=== PATIENT | male | born 1950 | race Hispanic/Latino ===

== ENCOUNTER 2018-09-13 15:01 | Emergency (ER) | payer SELFPAY ==
[2018-09-13] MEDS ORDERED: MECLIZINE HCL 12.5 MG TAB ONE (15:47)
[2018-09-13 15:53] LABS: Absolute Lymphocytes (CBC) 1.8 K/uL (0.7-4.9); Absolute Monocytes 0.4 K/uL (0.1-1.3); Absolute Neutrophil 7.3 K/uL (1.8-8.0); Basophils % 0.3 % (0-1.3); Eosinophils % 0.2 % (0-4.4); Hematocrit 42.5 % (39.6-49.0); Lymphocytes % 18.5 % (15.3-44.8); MCH 30.3 pg (27.0-35.0); MCV 85.6 fL (80-100); MPV 8.9 fL (7.6-11.3); Monocytes % 4.5 % (3.3-12.3); RBC Red Blood Cell Count 4.97 M/uL (4.33-5.43)
[2018-09-13 15:55] LABS: Protime INR 0.97
[2018-09-13 16:07] LABS: ALT/SGPT 23 U/L (12-78); AST/SGOT 13 U/L (15-37); Albumin 3.6 g/dL (3.4-5.0); Alkaline Phosphatase 74 U/L (45-117); BUN Blood Urea Nitrogen 13 mg/dL (7-18); Bicarbonate 22 mmol/L (21-32); Bilirubin Direct 0.1 mg/dL (0-0.2); Bilirubin Total 0.5 mg/dL (0.2-1.0); Glucose Level 205 mg/dL (74-106); Magnesium 1.9 mg/dL (1.8-2.4); NT PRO-BNP 397 pg/mL (<125); Potassium 3.7 mmol/L (3.5-5.1); Protein, Total 7.9 g/dL (6.4-8.2); Sodium Level 138 mmol/L (136-145); Troponin (Emerg Dept Use Only) < 0.02 ng/mL (0.0-0.045)
--- NOTE | 2018-09-13 16:27 | RAD REPORT ---
EXAM DESCRIPTION: CT - CTHCSPWOC - 09/13/2018 3:58 pm CLINICAL HISTORY: Fall, head and neck injury COMPARISON: None. TECHNIQUE: Axial 5 mm thick images of the head were obtained. Axial 2 mm thick images of the cervic al spine were obtained with sagittal and coronal reconstruction images generated and reviewed. All CT scans are performed using dose optimization technique as appropriate and may include automated exposure control or mA/KV adjustment according to patient size. FINDINGS: No intracranial hemorrhage is present. Patient has a baseline of mild atrophy and chronic ischemic change. There is diminished attenuation in the medial right cerebellum. There is localized e jennifer. This is most likely an acute or subacute cerebellum CVA. Malignant mass is a lesser considerati on. No acute or subacute infarction changes elsewhere. No acute cortical based infarction in the cere bral hemispheres. Ventricles are in proportion to the amount of volume loss. Mastoid air cells and pa ranasal sinuses are clear. No globe or orbit abnormality seen. Cervical body height and alignment are normal. No disk space narrowing. No fracture or acute bony abn ormality. No paraspinal mass or hematoma. Findings telephoned to the referring clinician 4:22 p.m. 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 The CVA radha ears to follow a vascular distribution. Malignant mass of the cerebellum is considered unlikely. Foll ow-up MR imaging can be performed as warranted. Underlying mild atrophy and chronic ischemic change. Cervical spine degenerative changes are present but no fracture or acute cervical spine finding noted .
--- NOTE | 2018-09-13 16:30 | RAD REPORT ---
EXAM DESCRIPTION: RAD - Chest Single View - 09/13/2018 4:22 pm CLINICAL HISTORY: Headache, weakness, dizziness COMPARISON: None. TECHNIQUE: AP portable chest image was obtained 1609 hours . FINDINGS: No peripheral mass, consolidation or failure. Lung markings are mildly prominent suspected to be baseline. Heart and vasculature are normal. No measurable pleural effusion and no pneumothorax . No acute bony abnormality seen. No acute aortic findings suspected. IMPRESSION: No acute cardiopulmonary process.
[2018-09-13] MEDS ORDERED: ASPIRIN 81 MG CHEWABLE TABLET ONE (16:50)
[2018-09-13] MEDS ORDERED: DEXAMETHASONE 10 MG/ML VIAL ONE (16:50)
[2018-09-13] MEDS ORDERED: FOLIC ACID 1 MG TABLET ONE (16:50)
[2018-09-13] MEDS ORDERED: NA CHLORIDE 0.9% 1,000 ML ONE (16:51)
--- NOTE | 2018-09-13 17:02 | ER ---
Nurse's Notes [facility] Name: Harpal Galloway Age: 67 yrs Sex: Male : 1950 Arrival Date: 09/13/2018 Time: 15:04 Bed 20 Private MD: Diagnosis: CVA Presentation: 09/13 15:10 Presenting complaint: Patient states: I have been getting these episodes where it feels la1 like the room is spinning for the last 2 years, they seem to last about thirty minutes, yesterday I fell in the bathroom because it was so bad and hit my head. Pt denies LOC/vomiting. Transition of care: patient was not received from another setting of care. Onset of symptoms was September 13, 2018. Risk Assessment: Do you want to hurt yourself or someone else? Patient reports no desire to harm self or others. Initial Sepsis Screen: Does the patient meet any 2 criteria? No. Patient's initial sepsis screen is negative. Does the patient have a suspected source of infection? No. Patient's initial sepsis screen is negative. Care prior to arrival: None. 15:10 Method Of Arrival: Wheelchair la1 15:10 Acuity: CANDI 3 la1 15:30 Pre-hospital glucose is not applicable to this patient. em 15:30 An acute neurological deficit is present. The charge nurse has been notified. em Triage Assessment: 15:20 The onset of the patients symptoms was September 12, 2018 at 22:00. Headache History: em Denies prior headaches. General: Appears in no apparent distress. comfortable, Behavior is calm, cooperative. Pain: Complains of pain in base of the skull and occipital area Pain began 1 day ago. Also complains of pain. Stroke Activation: Symptom onset > 6 hours Physician: Stroke Attending; Name: ; Notified At: ; Arrived At: Physician: Chief Stroke Resident; Name: ; Notified At: ; Arrived At: Physician: Stroke Resident; Name: ; Notified At: ; Arrived At: Physician: ED Attending; Name: ; Notified At: ; Arrived At: Physician: ED Resident; Name: ; Notified At: ; Arrived At: Historical: - Allergies: 15:11 No Known Allergies; la1 - PMHx: 15:11 None; la1 - Immunization history:: Adult Immunizations up to date. - Social history:: Smoking status: Patient/guardian denies using tobacco. - Ebola Screening: : No symptoms or risks identified at this time. Screenin:16 Abuse screen: Denies threats or abuse. Nutritional screening: No deficits noted. em Tuberculosis screening: No symptoms or risk factors identified. Fall Risk None identified. Assessment: 15:20 The patient has not been NPO before screening. The patient is not alert and/or unable em to follow commands. The patient does not exhibit slurred or garbled speech. The patient is not exhibiting difficulty speaking. The patient does not exhibit difficulty understanding words. The patient is able to swallow own secretions with no drooling or need for suction. Patient tolerated one teaspoon of water. No drooling, immediate coughing, gurgling, or clearing of the throat was noted. The patient passed the bedside swallow screening. Oral medications may be given as ordered. Contact Physician for further diet orders. Provider notified of bedside swallow screening results: Renard GE. T-PA (Activase) Screening: Contraindications: Patient reports onset of signs and symptoms of stroke greater than 6 hours ago: Yes. 15:20 General: Appears in no apparent distress. comfortable, Behavior is calm, cooperative, em appropriate for age, Reports falling yesterday after becoming dizzy. Pain: Complains of pain in occipital area and base of the skull Pain currently is 2 out of 10 on a pain scale. Neuro: Level of Consciousness is awake, alert, obeys commands, Oriented to person, place, time, situation, Dairy Farm Supervisor are equal bilaterally Moves all extremities. Gait is unsteady, Speech is normal, Facial symmetry appears normal, Pupils are PERRLA, Intact Reports dizziness, since last night "body feels heavy". Cardiovascular: Heart tones S1 S2 present Capillary refill < 3 seconds Patient's skin is warm and dry. Rhythm is sinus rhythm. Respiratory: Airway is patent Respiratory effort is even, unlabored, Respiratory pattern is regular, symmetrical, Breath sounds are clear bilaterally. GI: Patient currently denies nausea, vomiting. : No signs and/or symptoms were reported regarding the genitourinary system. EENT: No signs and/or symptoms were reported regarding the EENT system. Derm: Skin is intact, Skin is pink, warm \\T\\ dry. Musculoskeletal: Range of motion: intact in all extremities. 15:30 Reassessment: I agree with previous assessment. hb 17:16 Reassessment: Patient appears in no apparent distress at this time. No changes from em previously documented assessment. Patient and/or family updated on plan of care and expected duration. Pain level reassessed. Patient is alert, oriented x 3, equal unlabored respirations, skin warm/dry/pink. 18:05 Reassessment: Patient appears in no apparent distress at this time. report given to em KAREN Mccormick at [facility]. 18:43 Reassessment: Patient appears in no apparent distress at this time. Patient and/or em family updated on plan of care and expected duration. Pain level reassessed. Patient is alert, oriented x 3, equal unlabored respirations, skin warm/dry/pink. report given to [facility] Patient states symptoms have not improved. Vital Signs: 15:11 BP 116 / 66; Pulse 74; Resp 16; Temp 98.1; Pulse Ox 98% on R/A; Weight 68.04 kg; la1 16:19 BP 140 / 96; Pulse 81; Resp 16; Pulse Ox 99% on R/A; em 17:13 BP 163 / 74; Pulse 84; Resp 20; Pulse Ox 100% on R/A; Pain 2/10; em NIH Stroke Scale Scores: 15:30 NIHSS Score: 0 em ED Course: 15:04 Patient arrived in ED. sb2 15:11 Triage completed. la1 15:11 Arm band placed on right wrist. la1 15:13 Renard Nelson PA is PHCP. jmm 15:13 Glynn Reynolds MD is Attending Physician. [facility] 15:16 Patient has correct armband on for positive identification. Placed in gown. Bed in low em position. Call light in reach. Side rails up X2. Adult w/ patient. 15:22 Jose Raul Otero LVN is Primary Nurse. em 15:25 Initial lab(s) drawn, by me, sent to lab. Inserted saline lock: 20 gauge in right em antecubital area, using aseptic technique. Blood collected. 15:58 CT completed. Patient moved to CT via wheelchair. Patient moved back from CT. cw1 15:59 CT Head C Spine In Process Unspecified. EDMS 16:22 XRAY Chest (1 view) In Process Unspecified. EDMS 16:25 EKG done, by ED staff, reviewed by Renard GE. 3 18:39 No provider procedures requiring assistance completed. Patient transferred, IV remains em in place. Administered Medications: 15:40 Drug: Meclizine 25 mg Route: PO; em 16:50 Drug: Aspirin Chewable Tablet 324 mg Route: PO; em 16:50 Drug: foLIC Acid 1 mg Route: PO; em 16:50 Drug: NS 0.9% 1000 ml Route: IV; Rate: 1 bolus; Site: right antecubital; em 16:51 Drug: Decadron - Dexamethasone 10 mg Route: IVP; Site: right antecubital; hb Outcome: 17:01 ER care complete, transfer ordered by . [facility] 18:39 Transferred by ground EMS to [facility], Transfer form completed. em X-rays sent w/ patient. 18:39 Condition: good 18:39 Instructed on discharge instructions, Demonstrated understanding of instructions. 18:43 Patient left the ED. em NIH Stroke Scale - NIH Stroke Score Date: 09/13/2018 Time: 15:30 Total Score = 0 1a. Level of Consciousness (LOC) - 0(Alert) 1b. Level of Consciousness (LOC) (Year \\T\\ Age) - 0(Both) 1c. LOC Commands (Open \\T\\ Closes Eyes/Upset Operator) - 0(Both) 2. Best Gaze (Lateral Gaze Paresis) - 0(Normal) 3. Visual Field Loss - 0(No visual loss) 4. Facial Palsy - 0(Normal) 5a. Left Arm: Motor (10-second hold) - 0(No drift) 5b. Right Arm: Motor (10-second hold) - 0(No drift) 6a. Left Leg: Motor (5-second hold - always test supine) - 0(No drift) 6b. Right Leg: Motor (5-second hold - always test supine) - 0(No drift) 7. Limb Ataxia (finger/nose \\T\\ heel/zamorano - test with eyes open) - 0(Absent) 8. Sensory Loss (pinprick arms/legs/face) - 0(Normal) 9. Best Language: Aphasia (description/naming/reading) - 0(No aphasia) 10. Dysarthria (speech clarity - read or repeat words) - 0(Normal) 11. Extinction and Inattention (visual/tactile/auditory/spatial/personal) - 0(No abnormality) Initials: em Signatures: Dispatcher [employer] Renard Welsh PA PA jmm Munoz, Edgar, LVN LVN em Woodley, Crystal cw1 Faheem Danielson RN RN la1 Clementina Bustillos RN RN Ewelina Stafford 3 Christi Al 2
--- NOTE | 2018-09-13 17:02 | EDPHYS ---
Physician Documentation [facility] Name: Harpal Galloway Age: 67 yrs Sex: Male : 1950 Arrival Date: 09/13/2018 Time: 15:04 Bed 20 Private MD: ED Physician Glynn Reynolds HPI: 09/13 15:20 This 67 yrs old Male presents to ER via Wheelchair with complaints of Headache, jmm Dizziness. 15:20 The patient complains of pain to the left side of the back of head and right side of jmm the back of head. The patient describes the headache as aching. Onset: The symptoms/episode began/occurred acutely, yesterday. Associated signs and symptoms: Pertinent positives: dizziness, Pertinent negatives: vision changes, vision loss. This is a 67 year old male with no chronic medical conditions that presnts to the ED with headache which developed after a fall which occurred yesterday. The patient slipped in the shower after an episode of dizziness. Patient states over the past 2 years having multiple episodes of dizziness. Symptoms normally last approx 30 minutes. Patient denies chest pain or shortness of breath. . Historical: - Allergies: 15:11 No Known Allergies; la1 - PMHx: 15:11 None; la1 - Immunization history:: Adult Immunizations up to date. - Social history:: Smoking status: Patient/guardian denies using tobacco. - Ebola Screening: : No symptoms or risks identified at this time. ROS: 15:20 Constitutional: Negative for fever, chills, and weight loss, Eyes: Negative for injury, jmm pain, redness, and discharge, Cardiovascular: Negative for chest pain, palpitations, and edema, Respiratory: Negative for shortness of breath, cough, wheezing, and pleuritic chest pain. 15:20 Neck: Positive for pain at rest. 15:20 Abdomen/GI: Positive for vomiting. 15:20 Neuro: Positive for headache. 15:20 All other systems are negative. Exam: 15:20 Constitutional: This is a well developed, well nourished patient who is awake, alert, jmm and in no acute distress. Head/Face: atraumatic. Eyes: EOMI, no conjunctival erythema appreciated ENT: Moist Mucus Membranes Neck: Trachea midline, Supple Chest/axilla: Normal chest wall appearance and motion. Cardiovascular: Regular rate and rhythm. No edema appreciated Respiratory: Normal respirations, no respiratory distress appreciated Abdomen/GI: Non distended, soft Back: Normal ROM Skin: General appearance color normal MS/ Extremity: Moves all extremities, no obvious deformities appreciated, no edema noted to the lower extremities Neuro: Awake and alert, normal gait Psych: Behavior is normal, Mood is normal, Patient is cooperative and pleasant Vital Signs: 15:11 BP 116 / 66; Pulse 74; Resp 16; Temp 98.1; Pulse Ox 98% on R/A; Weight 68.04 kg; la1 16:19 BP 140 / 96; Pulse 81; Resp 16; Pulse Ox 99% on R/A; em 17:13 BP 163 / 74; Pulse 84; Resp 20; Pulse Ox 100% on R/A; Pain 2/10; em NIH Stroke Scale Scores: 15:30 NIHSS Score: 0 em MDM: 15:20 Patient medically screened. [facility] 15:59 Data reviewed: vital signs, nurses notes. [facility] 16:44 Data reviewed: lab test result(s), EKG, radiologic studies, CT scan, plain films. [facility] Counseling: I had a detailed discussion with the patient and/or guardian regarding: the historical points, exam findings, and any diagnostic results supporting the discharge/admit diagnosis, lab results, radiology results, the need to transfer to another facility. 16:56 ED course: I discussed the patient with Dr. Petty whom accepted transfer. . [facility] 09/13 15:13 Order name: Basic Metabolic Panel; Complete Time: 16:15 [facility] 09/13 15:13 Order name: CBC with Diff; Complete Time: 16:15 [facility] 09/13 15:13 Order name: LFT's; Complete Time: 16:15 [facility] 09/13 15:13 Order name: Magnesium; Complete Time: 16:15 [facility] 09/13 15:13 Order name: NT PRO-BNP; Complete Time: 16:15 [facility] 09/13 15:13 Order name: PT-INR; Complete Time: 16:15 [facility] 09/13 15:13 Order name: Troponin (emerg Dept Use Only); Complete Time: 16:15 [facility] 09/13 15:13 Order name: XRAY Chest (1 view); Complete Time: 16:36 [facility] 09/13 15:20 Order name: CT Head C Spine; Complete Time: 16:31 [facility] 09/13 15:13 Order name: EKG; Complete Time: 15:14 [facility] 09/13 15:13 Order name: Cardiac monitoring; Complete Time: 15:33 [facility] 09/13 15:13 Order name: EKG - Nurse/Tech; Complete Time: 15:33 [facility] 09/13 15:13 Order name: IV Saline Lock; Complete Time: 17:23 [facility] 09/13 15:13 Order name: Labs collected and sent; Complete Time: 15:33 [facility] 09/13 15:13 Order name: O2 Per Protocol; Complete Time: 15:33 [facility] 09/13 15:13 Order name: O2 Sat Monitoring; Complete Time: 15:33 [facility] Administered Medications: 15:40 Drug: Meclizine 25 mg Route: PO; em 16:50 Drug: Aspirin Chewable Tablet 324 mg Route: PO; em 16:50 Drug: foLIC Acid 1 mg Route: PO; em 16:50 Drug: NS 0.9% 1000 ml Route: IV; Rate: 1 bolus; Site: right antecubital; em 16:51 Drug: Decadron - Dexamethasone 10 mg Route: IVP; Site: right antecubital; hb Disposition: 09/14 07:35 Co-signature as Attending Physician, Glynn Reynolds MD I agree with the assessment and hina plan of care. Disposition: 09/13/18 17:01 Transfer ordered to [facility]. Diagnosis is CVA. - Reason for transfer: Higher level of care. - Accepting physician is Malinda. - Condition is Stable. - Problem is new. - Symptoms are unchanged. NIH Stroke Scale - NIH Stroke Score Date: 09/13/2018 Time: 15:30 Total Score = 0 1a. Level of Consciousness (LOC) - 0(Alert) 1b. Level of Consciousness (LOC) (Year \T\ Age) - 0(Both) 1c. LOC Commands (Open \T\ Closes Eyes/Passenger Conductor) - 0(Both) 2. Best Gaze (Lateral Gaze Paresis) - 0(Normal) 3. Visual Field Loss - 0(No visual loss) 4. Facial Palsy - 0(Normal) 5a. Left Arm: Motor (10-second hold) - 0(No drift) 5b. Right Arm: Motor (10-second hold) - 0(No drift) 6a. Left Leg: Motor (5-second hold - always test supine) - 0(No drift) 6b. Right Leg: Motor (5-second hold - always test supine) - 0(No drift) 7. Limb Ataxia (finger/nose \T\ heel/zamorano - test with eyes open) - 0(Absent) 8. Sensory Loss (pinprick arms/legs/face) - 0(Normal) 9. Best Language: Aphasia (description/naming/reading) - 0(No aphasia) 10. Dysarthria (speech clarity - read or repeat words) - 0(Normal) 11. Extinction and Inattention (visual/tactile/auditory/spatial/personal) - 0(No abnormality) Initials: em Signatures: Dispatcher [employer] Glynn Nava MD MD cha Mickail, Joel, PA PA Jose Raul Rizo, WOOD CARVING MACHINE OPERATOR WOOD CARVING MACHINE OPERATOR em Faheem Danielson, RN RN la1 Clementina Bustillos RN RN hb Corrections: (The following items were deleted from the chart) 09/13 18:43 17:01 09/13/2018 17:01 Transfer ordered to [facility]. em Diagnosis is CVA. Reason for transfer: Higher level of care. Accepting physician is Malinda. Condition is Stable. Problem is new. Symptoms are unchanged. maria luz
--- NOTE | 2018-09-14 07:40 | EKG ---
Test Date: 2018-09-13 Test Time: 16:20:32 Food Cart Attendant: EARLENE MEASUREMENT RESULTS: Intervals: Rate: 79 AL: 158 QRSD: 84 QT: 360 QTc: 412 [place]: P: 36 AL: 158 QRS: 2 T: 84 INTERPRETIVE STATEMENTS: Normal sinus rhythm Normal ECG No previous ECG available for comparison Electronically Signed On 09-14-18 07:38:55 [employer] by Randy Luna
== END 2018-09-13 18:43 | disposition short-term general hospital (02) ==
LOC: ER 15:01
DX: I63.9 Cerebral infarction, unspecified (principal)
CPT/HCPCS: 36415; 70450; 71045; 72125; 80048; 80076; 83735; 83880; 84484; 85025; 85610; 93005; 96374; 99285; J1100; J7030